=== PATIENT | male | born 1995 | race Caucasian/White ===

== ENCOUNTER 2018-09-10 10:51 | Inpatient (IN) | payer OTHER ==
[2018-09-10] MEDS ORDERED: SODIUM CHLORIDE 1,000 ML IV STA ×3 (11:35→13:40)
[2018-09-10] MEDS ORDERED: KETOROLAC TROMETHAMINE 30 MG/1 ML VIAL IVPUSH ONE (11:35)
[2018-09-10] MEDS ORDERED: KETOROLAC TROMETHAMINE 30 MG/1 ML VIAL ONE (11:54)
[2018-09-10 12:12] LABS: BASO % 0.1 % (0-2.0); EOS % 1.3 % (0-4.5); HEMATOCRIT 46.3 % (35.4-49); HEMOGLOBIN 15.5 GM/dL (11.7-16.9); LYMPH % 15.7 % (8-40); MCH 28.7 pg (25.7-33.7); MCHC 33.4 g/dl (32.0-35.9); MEAN CELL VOLUME 85.7 fl (80-96); MONO % 7.2 % (3.8-10.2); NEUT % 75.7 % (42.8-82.8); URINE APPEARANCE CLEAR; URINE BILIRUBIN NEGATIVE (NEGATIVE); URINE COLOR YELLOW; URINE GLUCOSE (UA) NEGATIVE (NEGATIVE); URINE KETONE NEGATIVE (NEGATIVE); URINE LEUK ESTERASE NEGATIVE (NEGATIVE); URINE NITRITE NEGATIVE (NEGATIVE); URINE PROTEIN NEGATIVE (NEGATIVE); WHITE BLOOD COUNT 6.5 K/mm3 (4.0-10.0)
[2018-09-10 12:16] LABS: PLATELET COUNT 251 K/MM3 (134-434)
--- NOTE | 2018-09-10 12:31 | PDOC ---
History of Present Illness - General Chief Complaint: Pain Stated Complaint: ABD PAIN Time Seen by Provider: 09/10/18 11:20 History Source: Patient Exam Limitations: No Limitations - History of Present Illness Travel History: No Initial Comments: 09/10/18 12:01 22-year-old male with no past medical history presents to ED with complaints of left flank aching and sharp pain radiating to his left back since yesterday evening. Patient denies any GI history, recent travel, recent illness or recent injury. Patient also denies GI history difficulty urinating, nausea, fever, or diarrhea. Timing/Duration: reports: constant Quality: reports: moderate, cramping Abdominal Pain Onset Location: reports: flank Pain Radiation: reports: back Activities at Onset: reports: none Aggravating Factors: improves with: None Alleviating Factors: improves with: None Past History - Travel Traveled outside of the country in the last 30 days: No Close contact w/someone who was outside of country & ill: No - Past Medical History Allergies/Adverse Reactions: Allergies Allergy/AdvReac Type Severity Reaction Status Date / Time No Known Allergies Allergy Verified 09/10/18 11:02 Home Medications: Ambulatory Orders NK [No Known Home Medication] 09/10/18 COPD: No - Suicide/Smoking/Psychosocial Hx Smoking History: Never smoked Patient Lives Alone: No Lives with/in: parents Review of Systems - Review of Systems Able to Perform ROS?: Yes Constitutional: No: Symptoms Reported HEENTM: No: Symptoms Reported Respiratory: No: Symptoms reported Cardiac (ROS): No: Symptoms Reported ABD/GI: Yes: Abdominal cramping : Yes: Flank Pain Musculoskeletal: Yes: Back Pain Integumentary: No: Symptoms Reported Neurological: No: Headache *Physical Exam - Vital Signs Last Vital Signs Temp Pulse Resp BP Pulse Ox 98.7 F 69 18 122/78 99 09/10/18 10:58 09/10/18 10:58 09/10/18 10:58 09/10/18 10:58 09/10/18 10:58 - Physical Exam General Appearance: Yes: Nourished, Appropriately Dressed. No: Apparent Distress HEENT: negative: Pale Conjunctivae Cardiovascular: positive: Regular Rhythm, Regular Rate. negative: Murmur Gastrointestinal/Abdominal: positive: Normal Bowel Sounds, Soft, Tenderness ( left upper quadrant left flank). negative: Distended, Guarding, Rebound Musculoskeletal: positive: CVA Tenderness (L) Extremity: positive: Normal Inspection Integumentary: positive: Normal Color, Warm, Moist Neurologic: positive: Motor Strength 5/5 (ambulatory) ED Treatment Course - LABORATORY CBC & Chemistry Diagram: 09/10/18 12:00 09/10/18 12:00 - ADDITIONAL ORDERS Additional order review: Laboratory Results 09/10/18 12:00 Urine Color Yellow Urine Appearance Clear Urine pH 6.0 Ur Specific [place] 1.028 Urine Protein Negative Urine Glucose (UA) Negative Urine Ketones Negative Urine Blood Negative Urine Nitrite Negative Urine Bilirubin Negative Urine Urobilinogen 1.0 Ur Leukocyte Esterase Negative 09/10/18 12:00 RBC 5.40 MCV 85.7 MCHC 33.4 RDW 13.0 MPV 7.0 L Neutrophils % 75.7 Lymphocytes % 15.7 Monocytes % 7.2 Eosinophils % 1.3 Basophils % 0.1 - RADIOLOGY Radiology Studies Ordered: Category Date Time Status SPIRAL- RENAL-STONE CT [CT] Stat CT Scan 09/10/18 11:37 Ordered - Medications Given in the ED: ED Medications Discontinued Medications Generic Name Dose Route Start Last Admin Trade Name Freq PRN Reason Stop Dose Admin Ketorolac Tromethamine 30 mg 09/10/18 11:35 09/10/18 12:14 Toradol Injection - IVPUSH 09/10/18 11:36 30 mg ONCE ONE Administration Medical Decision Making - Medical Decision Making 09/10/18 12:03 Complaint: Left upper quadrant left flank pain radiating to the back since yesterday no other symptoms. No medical history no injury Exam: Left upper quadrant and left CVA tenderness on exam Plan: Urine, labs IV fluids Toradol and spiral CT ordered 09/10/18 13:37 CT and shows no evidence of urinary tract calculi or obstructive uropathy. There is fluid identified about the body and tail of pancreas. This is suspicious of acute pancreatitis. Evaluation of pancreas is limited without the use of any contrast material. 09/10/18 13:38 Laboratory Tests 09/10/18 09/10/18 09/10/18 12:00 12:00 12:00 WBC 6.5 Hgb 15.5 Hct 46.3 Absolute Neuts (auto) 4.9 Sodium 139 Potassium 4.1 Chloride 105 Carbon Dioxide 31 Anion Gap 3 L BUN 9.8 Creatinine 1.0 Random Glucose 110 H Total Bilirubin 0.4 AST 33 ALT 31 Albumin 4.4 Urine Ketones Negative Urine Blood Negative Urine Bilirubin Negative Ur Leukocyte Esterase Negative 09/10/18 13:40 Patient ordered for additional labs made nothing by mouth, and second bag of IV fluids ordered. Patient reexamined. Patient has no right upper quadrant tenderness. Patient continues to have left flank tenderness with deep palpation 09/10/18 14:04 Laboratory Tests 09/10/18 12:00 LD Total 162 Total Amylase 212 H Lipase 1273 H [place]an Gap score is 0. Case discussed to be discussed with hospitalist for admission 09/10/18 14:35 Discussed with hospitalist and will admit to [facility]. EKG ordered. Patient ordered for dilaudid secondary to recurrent pain *DC/Admit/Observation/Transfer Diagnosis at time of Disposition: Pancreatitis - Discharge Dispostion Decision to Admit order: Yes - Referrals - Patient Instructions - Post Discharge Activity
[2018-09-10 12:45] LABS: ALBUMIN 4.4 g/dl (3.4-5.0); BILIRUBIN,TOTAL 0.4 mg/dL (0.2-1); BLOOD UREA NITROGEN 9.8 mg/dL (7-18); CALCIUM 9.5 mg/dL (8.5-10.1); POTASSIUM 4.1 mmol/L (3.5-5.1); TOT PROT 7.7 g/dl (6.4-8.2)
[2018-09-10] MEDS ORDERED: HYDROmorphone HCL CARPU-JECT 2 MG/1 ML DISP.SYRIN IVPUSH ONE (14:35)
[2018-09-10] MEDS ORDERED: HYDROmorphone HCl 2 MG/ML VIAL ONE (14:54)
[2018-09-10] MEDS ORDERED: LACTATED RINGERS SOLUTION 1,000 ML IV STA (15:24)
[2018-09-10] MEDS ORDERED: ONDANSETRON 4 MG/2 ML VIAL IVPUSH PRN (15:28)
--- NOTE | 2018-09-10 15:38 | HP ---
CHIEF COMPLAINT: Abdominal Pain PCP: HISTORY OF PRESENT ILLNESS: 22 y/o M with PMHx of Lactose intolerence presents with abdominal pain. Patient is primarily malay speaking, thus his girlfriend at bedside aided in providing the HPI. Patient was in his usual state of health yesterday, tolerating diet, passing flatus, micturating, and no difficulty with defecation. At approximately midnight, patient woke with sudden onset midepigastric pain that radiated to his LUQ. He is unable to describe the pain but says at worst it is intermittent and 10/10. This is the first time he has had this pain. He attempted to use the bathroom at this time hoping to provide pain relief but had difficulty defecating. He then tried home remedies (Lemon water with Salt, Milk of magnesium, Fabienne soda) with minimal relief. The persistence of pain with no improvement prompted him to visit [facility]. Of note, patient had 1 beer yesterday. Last weekend, he admits to having drank > 20 beers. Additionally, he endorses having rhinorrhea without any cough, fevers, chills last weekend. Lastly, Denies any hx of gallstones, Recent abdominal procedures including ERCP , Recent viral illness, Recent medication changes, Trauma or rash to the area, or any scorpion bites. Denies any associated chest pain, SOB, nausea, vomiting, diarrhea, constipation , Dysuria. 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 NECK: Supple LUNGS: Clear to auscultation bilaterally. No wheezes, no crackles. HEART: Regular rate and rhythm, normal S1 and S2 without murmur ABDOMEN: Soft, Tender to palpation in the LUQ > Midepigastrum, not distended, + bowel sounds, no guarding, no rebound MUSCULOSKELETAL: +Lloyds punch EXTREMITIES: No peripheral edema. NEUROLOGICAL: Cranial nerves II-XII intact. Normal speech. SKIN: Warm, dry Laboratory Results - last 24 hr 09/10/18 09/10/18 09/10/18 12:00 12:00 12:00 WBC 6.5 RBC 5.40 Hgb 15.5 Hct 46.3 MCV 85.7 MCH 28.7 MCHC 33.4 RDW 13.0 Plt Count 251 MPV 7.0 L Absolute Neuts (auto) 4.9 Neutrophils % 75.7 Lymphocytes % 15.7 Monocytes % 7.2 Eosinophils % 1.3 Basophils % 0.1 Nucleated RBC % 0 Sodium 139 Potassium 4.1 Chloride 105 Carbon Dioxide 31 Anion Gap 3 L BUN 9.8 Creatinine 1.0 Est GFR (CKD-EPI)AfAm 123.27 Est GFR (CKD-EPI)NonAf 106.36 Random Glucose 110 H Calcium 9.5 Total Bilirubin 0.4 AST 33 ALT 31 Alkaline Phosphatase 75 LD Total 162 Total Protein 7.7 Albumin 4.4 Total Amylase 212 H Lipase 1273 H Urine Color Yellow Urine Appearance Clear Urine pH 6.0 Ur Specific [place] 1.028 Urine Protein Negative Urine Glucose (UA) Negative Urine Ketones Negative Urine Blood Negative Urine Nitrite Negative Urine Bilirubin Negative Urine Urobilinogen 1.0 Ur Leukocyte Esterase Negative Active Medications Lactated Ringer's (Lactated Ringers Solution) 1,000 mls @ 1,000 mls/hr IV ONCE STA Stop: 09/10/18 16:23 Lactated Ringer's (Lactated Ringers Solution) 1,000 mls @ 200 mls/hr IV ASDIR DOUG Ketorolac Tromethamine (Toradol Injection -) 15 mg IVPUSH Q6H PRN PRN Reason: PAIN LEVEL 7 - 10 Stop: 09/15/18 15:23 Ondansetron HCl (Zofran Injection) 4 mg IVPUSH Q6H PRN PRN Reason: NAUSEA IMAGING: -Spiral CT: No evidence of urinary tract calculi or obstructive uropathy. Peripancreatic fluid suspicious for acute pancreatitis. Limited study as described above. ASSESSMENT/PLAN: 22 y/o M with PMHx of Lactose intolerence presents with Midepigastric and LUQ abdominal pain, found to have Lipase [address] evidence of Acute pancreatitis. #Acute Pancreatitis -Unclear etiology given that patient has only drank 1 beer recently (hx of binge drinking); No hx of Gallstones, recent ERCP, Viral illness, Medication use , Uremia, Trauma, or scorpion bite. -VSS, Without leukocytosis, TBilli and LFTs WNL -Amylase 212, Lipase 1273 -Spiral CT: Peripancreatic fluid suspicious for acute pancreatitis. -BISAP Score 0 -RANSONS criteria 0; Will check again at 48 hours -Abdominal US to r/o Gall stones -Stat Triglyceride level 24 -Patient requests diet; Will trial Clears and advance as tolerated -Given 1L NS in ED; Will give 1L LR more, then start LR @ 200 mls/hr until pain resolves and tolerating diet -Antiemesis via Ondansetron 4mg Q6H -Pain control via Ketorolac 15mg Q6 PRN; Will hold off on opiate use given theoretical risk of Sphincter of oddi spasm -Place NGT if any nausea/vomiting, severe pain or Abdominal distention -Will hold off on prophylactic ABx given patient is Afebrile, Nontoxic appearing , without leukocytosis, symptoms are resolving and patient would like to trial diet -Continue to Monitor WBC count, Hct, [place], Serum Cr as markers of severity and possible pancreatic necrosis #FEN -1L LR Bolus now followed by LR @ 200 mls/hr -Lytes WNL -Clear liquid diet #PPx -DVT: SCDs, Early ambulation Dispo: Admit to Med-Surg Visit type - Emergency Visit Emergency Visit: Yes ED Registration Date: 09/10/18 Care time: The patient presented to the Emergency Department on the above date and was hospitalized for further evaluation of their emergent condition. - New Patient This patient is new to me today: Yes Date on this admission: 09/10/18 - Critical Care Critical Care patient: No ATTENDING PHYSICIAN STATEMENT I saw and evaluated the patient. I reviewed the resident's note and discussed the case with the resident. I agree with the resident's findings and plan as documented. SUBJECTIVE: OBJECTIVE: ASSESSMENT AND PLAN:
[2018-09-10 16:19] VITALS: BMI 26.4
--- NOTE | 2018-09-10 17:29 | PN ---
Teaching Attending Note Name of Resident: Damari Jenkins ATTENDING PHYSICIAN STATEMENT I saw and evaluated the patient. I reviewed the resident's note and discussed the case with the resident. I agree with the resident's findings and plan as documented. SUBJECTIVE:22yo M with no PMH presented with abdominal pain that woke him up from sleep at midnight. L flank pain radiating to the back. /10 with no alleviating factors. no previous episodes. attempted to make himself vomit but was unable to. ate large fatty and fried meal yesterday with beer. did binge on beer last week with 20 beers but that is atypical he reports. denies CP, SOB, fever, chills no hx of gallstones, no known family history of autoimmune disease OBJECTIVE: Last Vital Signs Temp Pulse Resp BP Pulse Ox 98 F 69 18 132/79 100 09/10/18 15:28 09/10/18 15:28 09/10/18 15:28 09/10/18 15:28 09/10/18 15:28 General NAD CV S1 S2 RRR no murmur/rub/gallop Lungs CTA B/L no wheezing/rlaes/rhonchi Abdomen L flank and epigastric tenderness. neg ryan sign. soft +BS Extremiteis no pedal edema ASSESSMENT AND PLAN: 22yo M with no PMH presented with L flank pain and found to have acute appendicits by labs and imaging. 1. Acute appendicitis- medicine admission. unclear etiology, perhaps due to diet vs not being truthful on amount of beers? NPO, LR at 200cc/H, pain control. RUQ to evaluate for gallstones, check TG level. 2. Episodic ETOH abuse- notes to have binge on 20 beers last weekend. counselled on risks assoc with ETOH use and extermination supervisor consequences. 3. DVT ppx- lovenox
--- NOTE | 2018-09-10 19:41 | EKG ---
Test Reason : Blood Pressure : / mmHG Vent. Rate : 063 BPM Atrial Rate : 063 BPM P-R Int : 180 ms QRS Dur : 112 ms QT Int : 386 ms P-R-T Axes : 008 062 048 degrees QTc Int : 395 ms NORMAL SINUS RHYTHM VOLTAGE CRITERIA FOR LEFT VENTRICULAR HYPERTROPHY ST ELEVATION, CONSIDER EARLY REPOLARIZATION ABNORMAL ECG NO PREVIOUS ECGS AVAILABLE Confirmed by SARA SARAH MD ([id number]) on 09/10/2018 7:41:01 PM Referred By: Confirmed By:SARA SARAH MD
[2018-09-10] MEDS: LACTATED RINGERS SOLUTION 1,000 ML IV SCH (20:57)
[2018-09-10] MEDS: ENOXAPARIN NA (PORCINE) 40 MG/0.4 ML DISP.SYRIN SQ SCH (22:10)
[2018-09-10] MEDS: KETOROLAC TROMETHAMINE 15 MG/ML VIAL IVPUSH PRN (22:11)
[2018-09-11 07:33] LABS: BASO % 0.1 % (0-2.0); EOS % 0.4 % (0-4.5); HEMATOCRIT 41.2 % (35.4-49); HEMOGLOBIN 13.8 GM/dL (11.7-16.9); LYMPH % 20.8 % (8-40); MCH 29.1 pg (25.7-33.7); MCHC 33.6 g/dl (32.0-35.9); MEAN CELL VOLUME 86.5 fl (80-96); MEAN PLT VOLUME 7.3 fl (7.5-11.1); MONO % 11.5 % (3.8-10.2); NEUT % 67.2 % (42.8-82.8); PLATELET COUNT 230 K/MM3 (134-434); RBC 4.76 M/mm3 (4.00-5.60); WHITE BLOOD COUNT 7.1 K/mm3 (4.0-10.0)
[2018-09-11 08:01] LABS: ALBUMIN 3.2 g/dl (3.4-5.0); BILIRUBIN,TOTAL 1.6 mg/dL (0.2-1); BLOOD UREA NITROGEN 7.8 mg/dL (7-18); CALCIUM 8.2 mg/dL (8.5-10.1); CREATININE 0.8 mg/dL (0.55-1.3); MAGNESIUM 1.8 mg/dL (1.8-2.4); POTASSIUM 4.2 mmol/L (3.5-5.1)
[2018-09-11] MEDS: LACTATED RINGERS SOLUTION 1,000 ML IV SCH ×2 (09:43→15:58)
[2018-09-11] MEDS: ENOXAPARIN NA (PORCINE) 40 MG/0.4 ML DISP.SYRIN SQ SCH (09:43)
[2018-09-11] MEDS: KETOROLAC TROMETHAMINE 15 MG/ML VIAL IVPUSH PRN (09:45)
--- NOTE | 2018-09-11 14:04 | PN ---
Physical Exam: SUBJECTIVE: Patient seen and examined at bedside today. No discomfort while lying in bed. Mild abdominal discomfort when moving positions. OBJECTIVE: Vital Signs Period Temp Pulse Resp BP Sys/Hand Pulse Ox Last 24 Hr 98 F-99.7 F 69-85 18-20 118-142/72-79 100-100 GENERAL: The patient is awake, alert, and fully oriented, in no acute distress. HEAD: normocephalic atraumatic. EYES: No scleral icterus. LUNGS: Breath sounds equal, clear to auscultation bilaterally, no wheezes, no crackles, no accessory muscle use. HEART: Regular rate and rhythm, S1, S2 without murmur, rub or gallop. ABDOMEN: Tender to palpation of midepigastric region, LLq & LUQ. Soft, some guarding on deep palpation. No masses palpated. Bowel sounds present. EXTREMITIES: 2+ pulses, warm, well-perfused, no edema. SKIN: no rashes or lesions noted Laboratory Results - last 24 hr Laboratory Last Values WBC 7.1 K/mm3 (4.0-10.0) 09/11/18 06:42 RBC 4.76 M/mm3 (4.00-5.60) 09/11/18 06:42 Hgb 13.8 GM/dL (11.7-16.9) 09/11/18 06:42 Hct 41.2 % (35.4-49) 09/11/18 06:42 MCV 86.5 fl (80-96) 09/11/18 06:42 MCH 29.1 pg (25.7-33.7) 09/11/18 06:42 MCHC 33.6 g/dl (32.0-35.9) 09/11/18 06:42 RDW 13.0 % (11.9-15.9) 09/11/18 06:42 Plt Count 230 K/MM3 (134-434) 09/11/18 06:42 MPV 7.3 fl (7.5-11.1) L 09/11/18 06:42 Absolute Neuts (auto) 4.8 K/mm3 (1.5-8.0) 09/11/18 06:42 Neutrophils % 67.2 % (42.8-82.8) 09/11/18 06:42 Lymphocytes % 20.8 % (8-40) D 09/11/18 06:42 Monocytes % 11.5 % (3.8-10.2) H 09/11/18 06:42 Eosinophils % 0.4 % (0-4.5) 09/11/18 06:42 Basophils % 0.1 % (0-2.0) 09/11/18 06:42 Nucleated RBC % 0 % (0-0) 09/11/18 06:42 Sodium 140 mmol/L (136-145) 09/11/18 06:42 Potassium 4.2 mmol/L (3.5-5.1) 09/11/18 06:42 Chloride 107 mmol/L (98-107) 09/11/18 06:42 Carbon Dioxide 29 mmol/L (21-32) 09/11/18 06:42 Anion Gap 5 MMOL/L (8-16) L 09/11/18 06:42 BUN 7.8 mg/dL (7-18) 09/11/18 06:42 Creatinine 0.8 mg/dL (0.55-1.3) 09/11/18 06:42 Est GFR (CKD-EPI)AfAm 146.96 09/11/18 06:42 Est GFR (CKD-EPI)NonAf 126.80 09/11/18 06:42 Random Glucose 83 mg/dL (74-106) 09/11/18 06:42 Calcium 8.2 mg/dL (8.5-10.1) L 09/11/18 06:42 Phosphorus 3.0 mg/dL (2.5-4.9) 09/11/18 06:42 Magnesium 1.8 mg/dL (1.8-2.4) 09/11/18 06:42 Total Bilirubin 1.6 mg/dL (0.2-1) H 09/11/18 06:42 AST 20 U/L (15-37) 09/11/18 06:42 ALT 21 U/L (13-61) 09/11/18 06:42 Alkaline Phosphatase 58 U/L (45-117) 09/11/18 06:42 LD Total 162 U/L (87-246) 09/10/18 12:00 Total Protein 6.0 g/dl (6.4-8.2) L 09/11/18 06:42 Albumin 3.2 g/dl (3.4-5.0) L 09/11/18 06:42 Triglycerides 24 mg/dL (0-150) 09/10/18 12:00 Total Amylase 212 U/L (25-115) H 09/10/18 12:00 Lipase 1273 U/L (73-393) H 09/10/18 12:00 Urine Color Yellow 09/10/18 12:00 Urine Appearance Clear 09/10/18 12:00 Urine pH 6.0 (5.0-8.0) 09/10/18 12:00 Ur Specific [place] 1.028 (1.010-1.035) 09/10/18 12:00 Urine Protein Negative (NEGATIVE) 09/10/18 12:00 Urine Glucose (UA) Negative (NEGATIVE) 09/10/18 12:00 Urine Ketones Negative (NEGATIVE) 09/10/18 12:00 Urine Blood Negative (NEGATIVE) 09/10/18 12:00 Urine Nitrite Negative (NEGATIVE) 09/10/18 12:00 Urine Bilirubin Negative (NEGATIVE) 09/10/18 12:00 Urine Urobilinogen 1.0 mg/dL (0.2-1.0) 09/10/18 12:00 Ur Leukocyte Esterase Negative (NEGATIVE) 09/10/18 12:00 Blood Type O POSITIVE 09/10/18 14:34 Antibody Screen Negative 09/10/18 14:34 Active Medications Generic Name Dose Route Start Last Admin Trade Name Freq PRN Reason Stop Dose Admin Enoxaparin Sodium 40 mg 09/10/18 17:30 09/11/18 09:43 Lovenox - SQ 40 mg DAILY DOUG Administration Lactated Ringer's 1,000 mls @ 200 mls/hr 09/10/18 16:45 09/11/18 09:43 Lactated Ringers Solution IV 200 mls/hr ASDIR DOUG Administration Ketorolac Tromethamine 15 mg 09/10/18 15:24 09/11/18 09:45 Toradol Injection - IVPUSH 09/15/18 15:23 15 mg Q6H PRN Administration PAIN LEVEL 7 - 10 Ondansetron HCl 4 mg 09/10/18 15:28 Zofran Injection IVPUSH Q6H PRN NAUSEA ASSESSMENT/PLAN: 22 y.o. M PMH lactose intolerance found to have acute pancreatitis on abd/ pelvis CT. #Acute pancreatitis -Spiral CT: 1. No evidence of urinary tract calculi or obstructive uropathy. 2. Peripancreatic fluid suspicious for acute pancreatitis. Limited study as described above. -Abd US: Limited study with prominent CBD and no definite evidence of cholelithiasis or acute pathology. -Likely idiopathic; RUQ abd US neg for gallstones; TG 24 -Amylase 212, Lipase 1273 -Ransons criteria 0 on adm; recheck tomorrow @ 48h -NPO until pt feels able to tolerate CLD -Lactated ringers incr 250mL/ hr; will lung check x2 tonight -pain control PRN ; Ketorolac 15mg IM q6h #FEN -LR -Monitor lytes -NPO #DVT PPX LVX 40 Visit type - Emergency Visit Emergency Visit: No - New Patient This patient is new to me today: No - Critical Care Critical Care patient: No ATTENDING PHYSICIAN STATEMENT I saw and evaluated the patient. I reviewed the resident's note and discussed the case with the resident. I agree with the resident's findings and plan as documented. SUBJECTIVE: OBJECTIVE: ASSESSMENT AND PLAN:
--- NOTE | 2018-09-11 16:05 | PN ---
Teaching Attending Note Name of Resident: Farhana Rand ATTENDING PHYSICIAN STATEMENT I saw and evaluated the patient. I reviewed the resident's note and discussed the case with the resident. I agree with the resident's findings and plan as documented. SUBJECTIVE:continues to have L flank pain but overall improved since admission. denies CP, SOB, fever, chills, N/V/C/D OBJECTIVE: Last Vital Signs Temp Pulse Resp BP Pulse Ox 99.0 F 85 18 133/78 100 09/11/18 09:00 09/11/18 09:00 09/11/18 09:00 09/11/18 09:00 09/11/18 09:00 General NAD CV S1 S2 RRR no murmur/rub/gallop Lungs CTA B/L no wheezing/rlaes/rhonchi Abdomen soft L flank tenderness. epigastric tenderness resolved. ASSESSMENT AND PLAN: 22yo M with no PMH presented with L flank pain and found to have acute appendicits by labs and imaging. 1. Acute appendicitis-unknown etiology, possible diet with high fatty meals and alcohol. remains tender on exam. not requesting pain medications. encouraged if needed. will increase LR to 250mL. cont NPO and pain control. abdominal ultrasound noted. TG level low. will need GI eval as outpatient. 2. Episodic ETOH abuse- notes to have binge on 20 beers last weekend. counselled on risks assoc with ETOH use and watermaster consequences. no signs of withdrawal 3. DVT ppx- lovenox
[2018-09-12 07:10] LABS: BASO % 0.1 % (0-2.0); EOS % 0.8 % (0-4.5); HEMATOCRIT 40.7 % (35.4-49); HEMOGLOBIN 13.7 GM/dL (11.7-16.9); LYMPH % 17.6 % (8-40); MCH 28.8 pg (25.7-33.7); MCHC 33.6 g/dl (32.0-35.9); MEAN CELL VOLUME 85.7 fl (80-96); MEAN PLT VOLUME 7.1 fl (7.5-11.1); MONO % 12.4 % (3.8-10.2); NEUT % 69.1 % (42.8-82.8); RBC 4.75 M/mm3 (4.00-5.60); RDW 12.7 % (11.9-15.9); WHITE BLOOD COUNT 8.3 K/mm3 (4.0-10.0)
[2018-09-12] MEDS: LACTATED RINGERS SOLUTION 1,000 ML IV SCH ×3 (07:21→15:53)
[2018-09-12 07:40] LABS: ALBUMIN 3.2 g/dl (3.4-5.0); BILIRUBIN,TOTAL 1.1 mg/dL (0.2-1); BLOOD UREA NITROGEN 6.3 mg/dL (7-18); CALCIUM 8.7 mg/dL (8.5-10.1); CREATININE 0.8 mg/dL (0.55-1.3); MAGNESIUM 2.1 mg/dL (1.8-2.4); POTASSIUM 3.6 mmol/L (3.5-5.1); TOT PROT 6.1 g/dl (6.4-8.2)
[2018-09-12 08:15] LABS: PLATELET COUNT 219 K/MM3 (134-434)
--- NOTE | 2018-09-12 09:00 | CON.GI ---
Consult - Alcohol/Substance Use Hx Alcohol Use: Yes - Smoking History Smoking history: Never smoked Have you smoked in the past 12 months: Yes Aproximately how many cigarettes per day: 1 Home Medications - Allergies Allergies/Adverse Reactions: Allergies Allergy/AdvReac Type Severity Reaction Status Date / Time No Known Allergies Allergy Verified 09/10/18 11:02 - Home Medications Home Medications: Ambulatory Orders NK [No Known Home Medication] 09/10/18 Physical Exam-GI Vital Signs: Vital Signs Temperature 98.7 F 09/12/18 08:39 Pulse Rate 81 09/12/18 08:39 Respiratory Rate 18 09/12/18 08:39 Blood Pressure 144/85 09/12/18 08:39 O2 Sat by Pulse Oximetry (%) 100 09/11/18 21:00 Labs: CBC, BMP 09/12/18 06:19 09/12/18 06:19
--- NOTE | 2018-09-12 10:19 | CON.GI ---
Consult Consult Specialty:: GI Referred by:: Damari page resident Reason for Consultation:: Abdominal pain - History of Present Illness Chief Complaint: abdominal apin History of Present Illness: 22 year old male merlineich speaking with no pmhx presented to ed with 3 days history of sever abdominal pain radiated to his back , started Tuesday night while he was eating fried and Salami , 12/07 , radiated aso to left side chest , never had such pain before , he denies any associated symptoms N/V/D/C , denies any fever , chills, he reports drinking up to 20 beers on Tuesday deneis any urinary symptoms , denies any palpitation , sob , headache , blurry vision - History Source History Provided By: Patient Limitations to Obtaining History: Language Barrier (nurse help with translation) - Past Medical History 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: No: Alzheimer's, CVA, Dementia, Migraine, Multiple Sclerosis, Peripheral Neuropathy, Parkinson's, Seizure, Syncope, TIA, Vertigo, Other Cardio/Vascular: No: AFIB, Aneurysm, Aortic Insufficiency, Aortic Stenosis, CAD , CHF, Deep Vein Thrombosis, HTN, Hyperlipdemia, [place], Mitral Insufficiency, Mitral Stenosis, Murmur, Pulmonary Hypertension, Other Pulmonary: No: Asthma, Bronchitis, Cancer, COPD, O2 Dependent, Pneumonia, Previously Intubated, Pulmonary Embolus, Pulmonary Fibrosis, Sleep Apnea, Other Gastrointestinal: No: Ascites, Cancer, Constipation, Crohn's Disease, Diverticulitis, Diverticulosis, Esophageal Varices, Gastritis, GERD, GI Bleed, Hemorrhoids, Hiatal Hernia, Inflamatory Bowel Disease, Irritable Bowel Disease, Pancreatitis, Peptic Ulcer Disease, Ulcerative Colitis, Other Hepatobiliary: No: Cirrhosis, Cholelithiasis, Cholecystitis, Choledocholithiasis , Hepatitis A, Hepatitis B, Hepatitis C, Other Renal/: No: Renal Failure, Renal Inusuff, BPH, Cancer, Hematuria, Hemodialysis , Neurogenic Bladder, Renal Calculi, UTI, Other Heme/Onc: No: Anemia, B12 Deficiency, Bleeding Disorder, Cancer, Current Chemotherapy, Current Radiation Therapy, Hemochromatosis, Hypercoaguable State, Myeloproliferative Synd, Sickle Cell Disease, Sickle Cell Trait, Thrombocytopenia, Other Rheumatology: No: Fibromyalgia, Gout, Lupus, Rheumatoid Arthritis, Sarcoidosis, Vasculitis, Other ENT: No: Allergic Rhinitis, Sinusitis, Other Endocrine: No: [place]'s Disease, Johanne's Disease, Diabetes Insipidus, Diabetes Mellitus, Hyperparathyroidism, Hyperthyroidism, Hypothyroidism, Osteopenia, SIADH, Other Dermatology: No: Basal Cell, Cellulitis, Eczema, Melanoma, Psoriasis, Squamous Cell, Other - Past Surgical History Past Surgical History: Yes: None - Alcohol/Substance Use Hx Alcohol Use: Yes Number of Drinks Daily: 20 (20 beers on Saturdays ) History of Substance Use: reports: None Date of Last Use: 09/09/18 - Smoking History Have you smoked in the past 12 months: Yes Aproximately how many cigarettes per day: 1 If you are a former smoker, when did you quit?: hooka 3-4 times /month and vipes - Social History Usual Living Arrangement: Alone 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 <Randall Cole - Last Filed: 09/12/18 14:18> Home Medications <Durga Colei - Last Filed: 09/12/18 14:18> <Evelin Sethi - Last Filed: 09/12/18 18:29> - Allergies Allergies/Adverse Reactions: Allergies Allergy/AdvReac Type Severity Reaction Status Date / Time No Known Allergies Allergy Verified 09/10/18 11:02 - Home Medications Home Medications: Ambulatory Orders NK [No Known Home Medication] 09/10/18 Family Disease History - Family Disease History Family Disease History: Other: Mother (sinusitis ) <Randall Cole - Last Filed: 09/12/18 14:18> Review of Systems - Review of Systems Constitutional: reports: No Symptoms. denies: Chills, Diaphoresis Eyes: reports: No Symptoms HENT: reports: No Symptoms Neck: reports: No Symptoms Cardiovascular: denies: Palpitations, Shortness of Breath Respiratory: denies: Cough, Exercise Intolerance, Hemoptysis Gastrointestinal: reports: Abdominal Pain (left side radaited to his left back) . denies: Constipation, Diarrhea, Melena, Nausea, Rectal Bleeding, Vomiting Genitourinary: reports: No Symptoms Neurological: reports: No Symptoms <Randall Cole - Last Filed: 09/12/18 14:18> Physical Exam-GI Vital Signs: Vital Signs Temperature 98.7 F 09/12/18 08:39 Pulse Rate 81 09/12/18 08:39 Respiratory Rate 18 09/12/18 08:39 Blood Pressure 144/85 09/12/18 08:39 O2 Sat by Pulse Oximetry (%) 100 09/11/18 21:00 Constitutional: Yes: Well Nourished, No Distress, Calm Eyes: Yes: Conjunctiva Clear HENT: Yes: Atraumatic, Normocephalic Neck: Yes: Supple Cardiovascular: Yes: Regular Rate and Rhythm Respiratory: Yes: CTA Bilaterally Gastrointestinal Inspection: No: Ascites, Distention, Hernia, Scars ...Auscultate: Yes: Normoactive Bowel Sounds ...Palpate: Yes: Soft, Tenderness (left side pain , no rebound tenderness). No : Firm/Rigid ...Rectal Exam: Yes: Deferred Edema: No Peripheral Pulses WNL: Yes Neurological: Yes: Alert, Oriented Psychiatric: Yes: Alert, Oriented Labs: CBC, [facility] 09/12/18 06:19 09/12/18 06:19 <KelseyRandall - Last Filed: 09/12/18 14:18> Vital Signs: Vital Signs Temperature 98.5 F 09/12/18 15:24 Pulse Rate 76 09/12/18 15:24 Respiratory Rate 18 09/12/18 15:24 Blood Pressure 142/52 L 09/12/18 15:24 O2 Sat by Pulse Oximetry (%) 100 09/12/18 09:00 Labs: CBC, [facility] 09/12/18 06:19 09/12/18 06:19 <Evelin Sethi - Last Filed: 09/12/18 18:29> Imaging - Results Cat Scan: Report Reviewed Ultrasound: Report Reviewed <KelseyRandall - Last Filed: 09/12/18 14:18> Problem List - Problems (1) EtOH dependence Code(s): F10.20 - ALCOHOL DEPENDENCE, UNCOMPLICATED (2) Pancreatitis Code(s): K85.90 - ACUTE PANCREATITIS WITHOUT NECROSIS OR INFECTION, UNSP <Randall Cole - Last Filed: 09/12/18 14:18> Assessment/Plan # Acute pancreatitis , first episode * left side abdominal pain radiated to the back started Tuesday after he has salami and fries * elevated amylase and lipase three times upper normal , with CT scan finding per pancreatic fluids suggesting acute pancreatitis * heavy drink on weekend up to 20 Beers on Saturdays * CBD 9 mm with elevated bili 0.4.. 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 COLE - AGREE WITH ABOVE ASSESSMENT AND PLAN OUTLINED ABOVE <Evelin Sethi - Last Filed: 09/12/18 18:29>
[2018-09-12] MEDS: IMIPENEM/CILASTATIN SODIUM 500 MG in SODIUM CHLORIDE 100 ML IVPB SCH ×3 (11:15→21:34)
[2018-09-12] MEDS: ENOXAPARIN NA (PORCINE) 40 MG/0.4 ML DISP.SYRIN SQ SCH (11:20)
[2018-09-12 12:37] LABS: BILIRUBIN,DIRECT 0.3 mg/dL (0.0-0.2)
[2018-09-12 12:58] LABS: PH,URINE 8.5 (5.0-8.0); URINE APPEARANCE CLEAR; URINE BILIRUBIN NEGATIVE (NEGATIVE); URINE COLOR YELLOW; URINE GLUCOSE (UA) NEGATIVE (NEGATIVE); URINE KETONE 1+ (NEGATIVE); URINE LEUK ESTERASE NEGATIVE (NEGATIVE); URINE NITRITE NEGATIVE (NEGATIVE); URINE PROTEIN NEGATIVE (NEGATIVE); URINE UROBILINOGEN 0.2 mg/dL (0.2-1.0)
--- NOTE | 2018-09-12 13:34 | PN ---
Physical Exam: SUBJECTIVE: Patient seen and examined at bedside. Pt in mild abdominal discomfort, states 3-4/10 pain. Pain continues to radiate to his back. Pt also endorses mild shortness of breath when sitting up in bed. Educated patient on risks of binge drinking; pt understands and is aware of possible life threatening risks of alcohol abuse. 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 Appears stated age. HEENT: No scleral icterus. No lymphadenopathy LUNGS: CTABL HEART: Regular rate and rhythm, S1, S2 heard. Systolic murmur noted in aortic region. ABDOMEN: Soft. Tender to palpation in midepigastric region and LLQ. Pain radiates to back EXTREMITIES: 2+ pulses, warm, well-perfused, no edema. SKIN: No rashes or lesions noted Laboratory Results - last 24 hr Laboratory Last Values WBC 8.3 K/mm3 (4.0-10.0) 09/12/18 06:19 RBC 4.75 M/mm3 (4.00-5.60) 09/12/18 06:19 Hgb 13.7 GM/dL (11.7-16.9) 09/12/18 06:19 Hct 40.7 % (35.4-49) 09/12/18 06:19 MCV 85.7 fl (80-96) 09/12/18 06:19 MCH 28.8 pg (25.7-33.7) 09/12/18 06:19 MCHC 33.6 g/dl (32.0-35.9) 09/12/18 06:19 RDW 12.7 % (11.9-15.9) 09/12/18 06:19 Plt Count 219 K/MM3 (134-434) 09/12/18 06:19 MPV 7.1 fl (7.5-11.1) L 09/12/18 06:19 Absolute Neuts (auto) 5.7 K/mm3 (1.5-8.0) 09/12/18 06:19 Neutrophils % 69.1 % (42.8-82.8) 09/12/18 06:19 Lymphocytes % 17.6 % (8-40) 09/12/18 06:19 Monocytes % 12.4 % (3.8-10.2) H 09/12/18 06:19 Eosinophils % 0.8 % (0-4.5) D 09/12/18 06:19 Basophils % 0.1 % (0-2.0) 09/12/18 06:19 Nucleated RBC % 0 % (0-0) 09/12/18 06:19 Sodium 137 mmol/L (136-145) 09/12/18 06:19 Potassium 3.6 mmol/L (3.5-5.1) 09/12/18 06:19 Chloride 102 mmol/L (98-107) 09/12/18 06:19 Carbon Dioxide 30 mmol/L (21-32) 09/12/18 06:19 Anion Gap 5 MMOL/L (8-16) L 09/12/18 06:19 BUN 6.3 mg/dL (7-18) L 09/12/18 06:19 Creatinine 0.8 mg/dL (0.55-1.3) 09/12/18 06:19 Est GFR (CKD-EPI)AfAm 146.96 09/12/18 06:19 Est GFR (CKD-EPI)NonAf 126.80 09/12/18 06:19 Random Glucose 75 mg/dL (74-106) 09/12/18 06:19 Calcium 8.7 mg/dL (8.5-10.1) 09/12/18 06:19 Phosphorus 3.0 mg/dL (2.5-4.9) 09/12/18 06:19 Magnesium 2.1 mg/dL (1.8-2.4) 09/12/18 06:19 Total Bilirubin 1.1 mg/dL (0.2-1) H 09/12/18 06:19 Direct Bilirubin 0.3 mg/dL (0.0-0.2) H 09/12/18 06:19 AST 19 U/L (15-37) 09/12/18 06:19 ALT 19 U/L (13-61) 09/12/18 06:19 Alkaline Phosphatase 53 U/L (45-117) 09/12/18 06:19 LD Total 162 U/L (87-246) 09/10/18 12:00 Total Protein 6.1 g/dl (6.4-8.2) L 09/12/18 06:19 Albumin 3.2 g/dl (3.4-5.0) L 09/12/18 06:19 Triglycerides 24 mg/dL (0-150) 09/10/18 12:00 Total Amylase 212 U/L (25-115) H 09/10/18 12:00 Lipase 1273 U/L (73-393) H 09/10/18 12:00 Urine Color Yellow 09/12/18 11:30 Urine Appearance Clear 09/12/18 11:30 Urine pH 8.5 (5.0-8.0) H D 09/12/18 11:30 Ur Specific [place] 1.008 (1.010-1.035) L 09/12/18 11:30 Urine Protein Negative (NEGATIVE) 09/12/18 11:30 Urine Glucose (UA) Negative (NEGATIVE) 09/12/18 11:30 Urine Ketones 1+ (NEGATIVE) H 09/12/18 11:30 Urine Blood Negative (NEGATIVE) 09/12/18 11:30 Urine Nitrite Negative (NEGATIVE) 09/12/18 11:30 Urine Bilirubin Negative (NEGATIVE) 09/12/18 11:30 Urine Urobilinogen 0.2 mg/dL (0.2-1.0) 09/12/18 11:30 Ur Leukocyte Esterase Negative (NEGATIVE) 09/12/18 11:30 Blood Type O POSITIVE 09/11/18 06:42 Antibody Screen Negative 09/10/18 14:34 Active Medications Generic Name Dose Route Start Last Admin Trade Name Pilar PRN Reason Stop Dose Admin Enoxaparin Sodium 40 mg 09/10/18 17:30 09/12/18 11:20 Lovenox - SQ 40 mg DAILY DOUG Administration Lactated Ringer's 1,000 mls @ 250 mls/hr 09/11/18 14:37 09/12/18 11:22 Lactated Ringers Solution IV 250 mls/hr ASDIR DOUG Administration Imipenem/Cilastatin Sodium 500 100 mls @ 200 mls/hr 09/12/18 09:00 09/12/18 11:15 mg/ Sodium Chloride IVPB 09/13/18 08:59 Not Given Q6H-IV DOUG Protocol Ketorolac Tromethamine 15 mg 09/10/18 15:24 09/11/18 09:45 Toradol Injection - IVPUSH 09/15/18 15:23 15 mg Q6H PRN Administration PAIN LEVEL 7 - 10 Ondansetron HCl 4 mg 09/10/18 15:28 Zofran Injection IVPUSH Q6H PRN NAUSEA ASSESSMENT/PLAN: 22 y.o. M PMH lactose intolerance presented with 10/10 midepigastric pain radiating to his back. Found to have acute pancreatitis on CT. #Acute pancreatitis w/ possible cholangitis -MRCP today -CT abd pel confirmed acute pancreatitis -Abd US: prominent CBD -Pt binge drank 20-25 beers last weekend -Elevated amylase lipase on adm -Ransons 0 on adm, 0 @ 48hours -NPO -LR @250mL/hr -Pain control; Torodol 15mg IM PRN -Imipenem abx for empiric coverage #Fever -100.4F last night; resolved -Sepsis workup initiated, pending cultures -CXR: moderate inspiration with prominent mediastinum and some minimal atelectatic change at the left base. There is no sign of infiltrate or failure. The angles are sharp. The bones and soft tissues are intact. Correlation and follow-up recommended. -Monitor vitals -MRCP today #FEN -LR @250mL/ hr -Monitor lytes -NPO #DVT PPX -LVX 40 -SCDs Visit type - Emergency Visit Emergency Visit: No - New Patient This patient is new to me today: No - Critical Care Critical Care patient: No ATTENDING PHYSICIAN STATEMENT I saw and evaluated the patient. I reviewed the resident's note and discussed the case with the resident. I agree with the resident's findings and plan as documented. SUBJECTIVE: OBJECTIVE: ASSESSMENT AND PLAN:
--- NOTE | 2018-09-12 13:40 | CON.ID ---
Consult Consult Specialty:: infectious diseases Referred by:: hospitalist Reason for Consultation:: fever,pancreatitis - History of Present Illness Chief Complaint: abd pain,fever History of Present Illness: 22 year old male merlineich speaking with no pmhx presented to ed with 3 days history of sever abdominal pain radiated to his back , started Tuesday night while he was eating fried and Salami , 12/07 , radiated aso to left side chest , never had such pain before , he denies any associated symptoms N/V/D/C , denies any fever , chills, he reports drinking up to 20 beers on Tuesday deneis any urinary symptoms , denies any palpitation , sob , headache , blurry vision currently patient feels better,still with abd pain - History Source History Provided By: Patient Limitations to Obtaining History: Language Barrier - Past Medical History 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: Alzheimer's, CVA, Dementia, Migraine, Multiple Sclerosis, Peripheral Neuropathy, Parkinson's, Seizure, Syncope, TIA, Vertigo, Other Cardio/Vascular: No: AFIB, Aneurysm, Aortic Insufficiency, Aortic Stenosis, CAD , CHF, Deep Vein Thrombosis, HTN, Hyperlipdemia, [place], Mitral Insufficiency, Mitral Stenosis, Murmur, Pulmonary Hypertension, Other Pulmonary: No: Asthma, Bronchitis, Cancer, COPD, O2 Dependent, Pneumonia, Previously Intubated, Pulmonary Embolus, Pulmonary Fibrosis, Sleep Apnea, Other Gastrointestinal: No: Ascites, Cancer, Constipation, Crohn's Disease, Diverticulitis, Diverticulosis, Esophageal Varices, Gastritis, GERD, GI Bleed, Hemorrhoids, Hiatal Hernia, Inflamatory Bowel Disease, Irritable Bowel Disease, Pancreatitis, Peptic Ulcer Disease, Ulcerative Colitis, Other Hepatobiliary: No: Cirrhosis, Cholelithiasis, Cholecystitis, Choledocholithiasis , Hepatitis A, Hepatitis B, Hepatitis C, Other Renal/: No: Renal Failure, Renal Inusuff, BPH, Cancer, Hematuria, Hemodialysis , Neurogenic Bladder, Renal Calculi, UTI, Other Rheumatology: No: Fibromyalgia, Gout, Lupus, Rheumatoid Arthritis, Sarcoidosis, Vasculitis, Other ENT: No: Allergic Rhinitis, Sinusitis, Other Endocrine: No: [place]'s Disease, [place]'s Disease, Diabetes Insipidus, Diabetes Mellitus, Hyperparathyroidism, Hyperthyroidism, Hypothyroidism, Osteopenia, SIADH, Other Dermatology: No: Basal Cell, Cellulitis, Eczema, Melanoma, Psoriasis, Squamous Cell, Other - Past Surgical History Past Surgical History: Yes: None - Alcohol/Substance Use Hx Alcohol Use: Yes Number of Drinks Daily: 20 (20 beers on Saturdays ) History of Substance Use: reports: None Date of Last Use: 09/09/18 - Smoking History Smoking history: Never smoked Have you smoked in the past 12 months: Yes Aproximately how many cigarettes per day: 1 If you are a former smoker, when did you quit?: hooka 3-4 times /month and vipes - Social History Usual Living Arrangement: Alone 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 Medications - Allergies Allergies/Adverse Reactions: Allergies Allergy/AdvReac Type Severity Reaction Status Date / Time No Known Allergies Allergy Verified 09/10/18 11:02 - Home Medications Home Medications: Ambulatory Orders NK [No Known Home Medication] 09/10/18 Family Disease History - Family Disease History Family Disease History: Other: Mother (sinusitis ) Review of Systems - Review of Systems Constitutional: reports: Fever Eyes: reports: No Symptoms Cardiovascular: reports: No Symptoms Respiratory: reports: No Symptoms Gastrointestinal: reports: Abdominal Pain Genitourinary: reports: No Symptoms Musculoskeletal: reports: No Symptoms Integumentary: reports: No Symptoms Neurological: reports: No Symptoms Endocrine: reports: No Symptoms Hematology/Lymphatic: reports: No Symptoms Psychiatric: reports: No Symptoms Physical Exam Vital Signs: Vital Signs Temperature 98.7 F 09/12/18 08:39 Pulse Rate 81 09/12/18 08:39 Respiratory Rate 18 09/12/18 08:39 Blood Pressure 144/85 09/12/18 08:39 O2 Sat by Pulse Oximetry (%) 100 09/11/18 21:00 Constitutional: Yes: Well Nourished, Calm, Mild Distress Cardiovascular: Yes: Regular Rate and Rhythm Respiratory: Yes: Regular, CTA Bilaterally Gastrointestinal: Yes: Normal Bowel Sounds, Soft Musculoskeletal: Yes: WNL Extremities: Yes: WNL Neurological: Yes: Alert, Oriented Psychiatric: Yes: Alert, Oriented Labs: CBC, BMP 09/12/18 06:19 09/12/18 06:19 Imaging - Results Chest X-ray: Report Reviewed, Image Reviewed Cat Scan: Report Reviewed, Image Reviewed Ultrasound: Report Reviewed, Image Reviewed Assessment/Plan Problem List - Problems (1) EtOH dependence Code(s): F10.20 - ALCOHOL DEPENDENCE, UNCOMPLICATED (2) Pancreatitis Code(s): K85.90 - ACUTE PANCREATITIS WITH after lookng at the symptoms and imaging studies ,leaning towards alcholic pancreatitis at the moment we will not give any abx if the wbc starts to rise and patient starts spiking fevers,then will start abx also will need imaging study in couple of days
--- NOTE | 2018-09-12 15:15 | PN ---
Teaching Attending Note Name of Resident: Farhana Rand ATTENDING PHYSICIAN STATEMENT I saw and evaluated the patient. I reviewed the resident's note and discussed the case with the resident. I agree with the resident's findings and plan as documented. SUBJECTIVE: Reports ongoing abdominal discomfort (L side). No nausea/vomiting. Hungry + OBJECTIVE: Fever overnight Tmax 100.6. Hemodynamically Stable. Last Vital Signs Temp Pulse Resp BP Pulse Ox 98.7 F 81 18 144/85 100 09/12/18 08:39 09/12/18 08:39 09/12/18 09:00 09/12/18 08:39 09/12/18 09:00 HEENT - Atraumatic, Normocephalic. Heart - S1, S2, SM Lungs -clear to auscultation Abdomen - L sided tenderness, soft, bowel sounds normal Extremities - no edema, no calf tenderness Laboratory Results - last 24 hr 09/11/18 09/12/18 09/12/18 06:42 06:19 06:19 WBC 8.3 RBC 4.75 Hgb 13.7 Hct 40.7 MCV 85.7 MCH 28.8 MCHC 33.6 RDW 12.7 Plt Count 219 MPV 7.1 L Absolute Neuts (auto) 5.7 Neutrophils % 69.1 Lymphocytes % 17.6 Monocytes % 12.4 H Eosinophils % 0.8 D Basophils % 0.1 Nucleated RBC % 0 Sodium 137 Potassium 3.6 Chloride 102 Carbon Dioxide 30 Anion Gap 5 L BUN 6.3 L Creatinine 0.8 Est GFR (CKD-EPI)AfAm 146.96 Est GFR (CKD-EPI)NonAf 126.80 Random Glucose 75 Calcium 8.7 Phosphorus 3.0 Magnesium 2.1 Total Bilirubin 1.1 H Direct Bilirubin 0.3 H AST 19 ALT 19 Alkaline Phosphatase 53 Total Protein 6.1 L Albumin 3.2 L Urine Color Urine Appearance Urine pH Ur Specific [place] Urine Protein Urine Glucose (UA) Urine Ketones Urine Blood Urine Nitrite Urine Bilirubin Urine Urobilinogen Ur Leukocyte Esterase Blood Type O POSITIVE 09/12/18 11:30 WBC RBC Hgb Hct MCV MCH MCHC RDW Plt Count MPV Absolute Neuts (auto) Neutrophils % Lymphocytes % Monocytes % Eosinophils % Basophils % Nucleated RBC % Sodium Potassium Chloride Carbon Dioxide Anion Gap BUN Creatinine Est GFR (CKD-EPI)AfAm Est GFR (CKD-EPI)NonAf Random Glucose Calcium Phosphorus Magnesium Total Bilirubin Direct Bilirubin AST ALT Alkaline Phosphatase Total Protein Albumin Urine Color Yellow Urine Appearance Clear Urine pH 8.5 H D Ur Specific [place] 1.008 L Urine Protein Negative Urine Glucose (UA) Negative Urine Ketones 1+ H Urine Blood Negative Urine Nitrite Negative Urine Bilirubin Negative Urine Urobilinogen 0.2 Ur Leukocyte Esterase Negative Blood Type Current Medications Generic Name Dose Route Start Last Admin Trade Name Freq PRN Reason Stop Dose Admin Enoxaparin Sodium 40 mg 09/10/18 17:30 09/12/18 11:20 Lovenox - SQ 40 mg DAILY DOUG Administration Lactated Ringer's 1,000 mls @ 250 mls/hr 09/11/18 14:37 09/12/18 11:22 Lactated Ringers Solution IV 250 mls/hr ASDIR DOUG Administration Imipenem/Cilastatin Sodium 500 100 mls @ 200 mls/hr 09/12/18 09:00 09/12/18 11:15 mg/ Sodium Chloride IVPB 09/13/18 08:59 Not Given Q6H-IV DOUG Protocol Ketorolac Tromethamine 15 mg 09/10/18 15:24 09/11/18 09:45 Toradol Injection - IVPUSH 09/15/18 15:23 15 mg Q6H PRN Administration PAIN LEVEL 7 - 10 Ondansetron HCl 4 mg 09/10/18 15:28 Zofran Injection IVPUSH Q6H PRN NAUSEA Home Medications Medication Instructions Recorded NK [No Known Home Medication] 09/10/18 ASSESSMENT AND PLAN: 22 year old male with history of periodic binge drinking, presents with L flank pain and found to have acute pancreatitis with CBD dilatation. 1. Acute Pancreatitis - etiology unclear. US Abdo showed CBD 9mm. Lipase 1273 CT A/P - Peripancreatic Fluid suspicious for acute pancreatitis. IV hydration MRCP for further evaluation of Pancreatobiliary ductal system NPO/IV Fluids. 2. Possible acute cholangitis - Fever, elevated bilirubin, dilated CBD Will start Carbapenem empirically. GI/ID following. DVT Px - Lovenox SQ
[2018-09-12] MEDS ORDERED: PT OWN MED DRAWER 7, Y5N ONE (21:01)
[2018-09-13] MEDS ORDERED: PT OWN MED DRAWER 7, Y5N ONE (01:52)
[2018-09-13] MEDS: IMIPENEM/CILASTATIN SODIUM 500 MG in SODIUM CHLORIDE 100 ML IVPB SCH (02:10)
[2018-09-13 07:05] LABS: BASO % 0.3 % (0-2.0); EOS % 4.4 % (0-4.5); HEMATOCRIT 39.6 % (35.4-49); HEMOGLOBIN 13.2 GM/dL (11.7-16.9); LYMPH % 22.7 % (8-40); MCH 28.7 pg (25.7-33.7); MCHC 33.5 g/dl (32.0-35.9); MEAN CELL VOLUME 85.7 fl (80-96); MONO % 12.6 % (3.8-10.2); PLATELET COUNT 224 K/MM3 (134-434); RBC 4.62 M/mm3 (4.00-5.60); RDW 12.5 % (11.9-15.9); WHITE BLOOD COUNT 5.6 K/mm3 (4.0-10.0)
[2018-09-13 07:15] LABS: ALBUMIN 3.2 g/dl (3.4-5.0); BILIRUBIN,TOTAL 0.8 mg/dL (0.2-1); BLOOD UREA NITROGEN 7.8 mg/dL (7-18); CALCIUM 8.8 mg/dL (8.5-10.1); CREATININE 0.7 mg/dL (0.55-1.3); PHOSPHOROUS 3.6 mg/dL (2.5-4.9); POTASSIUM 3.9 mmol/L (3.5-5.1); TOT PROT 6.2 g/dl (6.4-8.2)
[2018-09-13] MEDS: LACTATED RINGERS SOLUTION 1,000 ML IV SCH (09:19)
[2018-09-13] MEDS: ENOXAPARIN NA (PORCINE) 40 MG/0.4 ML DISP.SYRIN SQ SCH (09:20)
--- NOTE | 2018-09-13 12:58 | PN.GI ---
GI Progress Note Subjective: Pt seen/examined at bedside, feeling better, abdominal pain resolved. Denies nausea/vomiting or fever/chills. Tolerating liquid diet. - Objective Vital Signs: Vital Signs Temperature 98.0 F 09/13/18 09:22 Pulse Rate 74 09/13/18 09:22 Respiratory Rate 16 09/13/18 09:22 Blood Pressure 147/78 09/13/18 09:22 O2 Sat by Pulse Oximetry (%) 99 09/12/18 21:00 Constitutional: Well Nourished, No Distress, Calm Cardiovascular: Yes: WNL, Regular Rate and Rhythm Respiratory: Yes: WNL, Regular, CTA Bilaterally ...Palpate: Yes: Other (Abd soft, nt, nd) Labs: CBC, BMP 09/13/18 06:15 09/13/18 06:15 Problem List - Problems (1) Pancreatitis Assessment/Plan: 22yo male presenting with abdominal pain with labs/imaging suggestive of acute pancreatitis (mild) likely secondary to etoh. Distended gallbladder, though no stones seen. MRCP without evidence of biliary dilation. LFTs normalized. Clinically improved. -Continue supportive measures -Advance diet as tolerated -Strict etoh abstinence advised -No clear indication for antibiotics at this time -Dc planning per primary team Discussed with medicine resident Code(s): K85.90 - ACUTE PANCREATITIS WITHOUT NECROSIS OR INFECTION, UNSP
--- NOTE | 2018-09-13 13:52 | PN ---
Progress Note, Physician History of Present Illness: stable no complaints - Current Medication List Current Medications: Active Medications Enoxaparin Sodium (Lovenox -) 40 mg SQ DAILY [facility] Last Admin: 09/13/18 09:20 Dose: 40 mg Lactated Ringer's (Lactated Ringers Solution) 1,000 mls @ 250 mls/hr IV ASDIR DOUG Last Admin: 09/13/18 09:19 Dose: 250 mls/hr Ketorolac Tromethamine (Toradol Injection -) 15 mg IVPUSH Q6H PRN PRN Reason: PAIN LEVEL 7 - 10 Stop: 09/15/18 15:23 Last Admin: 09/11/18 09:45 Dose: 15 mg Ondansetron HCl (Zofran Injection) 4 mg IVPUSH Q6H PRN PRN Reason: NAUSEA - Objective Vital Signs: Vital Signs Temperature 98.0 F 09/13/18 09:22 Pulse Rate 74 09/13/18 09:22 Respiratory Rate 16 09/13/18 09:22 Blood Pressure 147/78 09/13/18 09:22 O2 Sat by Pulse Oximetry (%) 99 09/13/18 09:00 Constitutional: Yes: No Distress, Calm Cardiovascular: Yes: Regular Rate and Rhythm Respiratory: Yes: Regular, CTA Bilaterally Gastrointestinal: Yes: Normal Bowel Sounds, Soft Musculoskeletal: Yes: WNL Extremities: Yes: WNL Neurological: Yes: Alert, Oriented Psychiatric: Yes: Alert, Oriented Labs: CBC, BMP 09/13/18 06:15 09/13/18 06:15 Assessment/Plan Problem List - Problems (1) EtOH dependence Code(s): F10.20 - ALCOHOL DEPENDENCE, UNCOMPLICATED (2) Pancreatitis Code(s): K85.90 - ACUTE PANCREATITIS WITH continue current mgmt rest as per the team
[2018-09-13 15:14] VITALS: BP 139/73; PULSE 68; TEMP 98.4
--- NOTE | 2018-09-13 17:18 | DS ---
Physical Exam: SUBJECTIVE: Patient seen and examined at bedside. In no acute distress. Denies abdominal pain. Afebrile. OBJECTIVE: Vital Signs Period Temp Pulse Resp BP Sys/Hand Pulse Ox Last 24 Hr 98.0 F-99.8 F 68-75 16-18 138-147/73-84 99-99 PHYSICAL EXAM GENERAL: The patient is awake, alert, and fully oriented, in no acute distress. LUNGS: Breath sounds equal, clear to auscultation bilaterally, no wheezes, no crackles, no accessory muscle use. HEART: Regular rate and rhythm, S1, S2 heard. Systolic murmur noted yesterday but did not appreciate murmur today. ABDOMEN: Soft. NTND. Bowel sounds +. EXTREMITIES: 2+ pulses, warm, well-perfused, no edema. SKIN: No rashes or lesions noted LABS Laboratory Results - last 24 hr Laboratory Last Values WBC 5.6 K/mm3 (4.0-10.0) 09/13/18 06:15 RBC 4.62 M/mm3 (4.00-5.60) 09/13/18 06:15 Hgb 13.2 GM/dL (11.7-16.9) 09/13/18 06:15 Hct 39.6 % (35.4-49) 09/13/18 06:15 MCV 85.7 fl (80-96) 09/13/18 06:15 MCH 28.7 pg (25.7-33.7) 09/13/18 06:15 MCHC 33.5 g/dl (32.0-35.9) 09/13/18 06:15 RDW 12.5 % (11.9-15.9) 09/13/18 06:15 Plt Count 224 K/MM3 (134-434) 09/13/18 06:15 MPV 7.0 fl (7.5-11.1) L 09/13/18 06:15 Absolute Neuts (auto) 3.4 K/mm3 (1.5-8.0) 09/13/18 06:15 Neutrophils % 60.0 % (42.8-82.8) 09/13/18 06:15 Lymphocytes % 22.7 % (8-40) D 09/13/18 06:15 Monocytes % 12.6 % (3.8-10.2) H 09/13/18 06:15 Eosinophils % 4.4 % (0-4.5) D 09/13/18 06:15 Basophils % 0.3 % (0-2.0) 09/13/18 06:15 Nucleated RBC % 0 % (0-0) 09/13/18 06:15 Sodium 138 mmol/L (136-145) 09/13/18 06:15 Potassium 3.9 mmol/L (3.5-5.1) 09/13/18 06:15 Chloride 104 mmol/L (98-107) 09/13/18 06:15 Carbon Dioxide 30 mmol/L (21-32) 09/13/18 06:15 Anion Gap 4 MMOL/L (8-16) L 09/13/18 06:15 BUN 7.8 mg/dL (7-18) 09/13/18 06:15 Creatinine 0.7 mg/dL (0.55-1.3) 09/13/18 06:15 Est GFR (CKD-EPI)AfAm 155.25 09/13/18 06:15 Est GFR (CKD-EPI)NonAf 133.96 09/13/18 06:15 Random Glucose 66 mg/dL (74-106) L 09/13/18 06:15 Calcium 8.8 mg/dL (8.5-10.1) 09/13/18 06:15 Phosphorus 3.6 mg/dL (2.5-4.9) 09/13/18 06:15 Magnesium 2.0 mg/dL (1.8-2.4) 09/13/18 06:15 Total Bilirubin 0.8 mg/dL (0.2-1) 09/13/18 06:15 Direct Bilirubin 0.3 mg/dL (0.0-0.2) H 09/12/18 06:19 AST 16 U/L (15-37) 09/13/18 06:15 ALT 17 U/L (13-61) 09/13/18 06:15 Alkaline Phosphatase 50 U/L (45-117) 09/13/18 06:15 LD Total 162 U/L (87-246) 09/10/18 12:00 Total Protein 6.2 g/dl (6.4-8.2) L 09/13/18 06:15 Albumin 3.2 g/dl (3.4-5.0) L 09/13/18 06:15 Triglycerides 24 mg/dL (0-150) 09/10/18 12:00 Total Amylase 212 U/L (25-115) H 09/10/18 12:00 Lipase 1273 U/L (73-393) H 09/10/18 12:00 Urine Color Yellow 09/12/18 11:30 Urine Appearance Clear 09/12/18 11:30 Urine pH 8.5 (5.0-8.0) H D 09/12/18 11:30 Ur Specific [place] 1.008 (1.010-1.035) L 09/12/18 11:30 Urine Protein Negative (NEGATIVE) 09/12/18 11:30 Urine Glucose (UA) Negative (NEGATIVE) 09/12/18 11:30 Urine Ketones 1+ (NEGATIVE) H 09/12/18 11:30 Urine Blood Negative (NEGATIVE) 09/12/18 11:30 Urine Nitrite Negative (NEGATIVE) 09/12/18 11:30 Urine Bilirubin Negative (NEGATIVE) 09/12/18 11:30 Urine Urobilinogen 0.2 mg/dL (0.2-1.0) 09/12/18 11:30 Ur Leukocyte Esterase Negative (NEGATIVE) 09/12/18 11:30 Blood Type O POSITIVE 09/11/18 06:42 Antibody Screen Negative 09/10/18 14:34 HOSPITAL COURSE: 22 y.o. M PMH lactose intolerance presented with 10/10 midepigastric pain radiating to his back. Pt had 1 episode fever 100.4 on 09/11/18 which has since resolved. Found to have acute pancreatitis on CT. MRCP negative for pancreatic pathology. Pt kept NPO and given IVF. Received Torodol IM PRN for pain control. Sepsis workup yielded no significant findings. Today patient was able to tolerate PO diet with no issues. Currently denies abdominal pain on palpation/ at rest. Vitals stable. Incidental finding of distended GB and prominent CBD for which pt will f/u with GI outpatient. Date of Admission:09/10/[address] 09/10/18: 1. No evidence of urinary tract calculi or obstructive uropathy. 2. Peripancreatic fluid suspicious for acute pancreatitis. Limited study as described above. Abd US 09/10/18: Limited study with prominent CBD and no definite evidence of cholelithiasis or acute pathology. MRCP 09/12/18: Distended gallbladder. There is no dilatation of the intrahepatic duct common bile duct or pancreatic ducts. There are no abdominal masses, collections or enlarged lymph nodes. Date of Discharge: 09/13/18 Minutes to complete discharge: 36 Discharge Summary Reason For Visit: PANCREATITIS Condition: Stable - Instructions Diet, Activity, Other Instructions: You presented to the hospital for a stomach pain. You had imaging done which revealed inflammation surrounding your pancreas. You were treated with IV fluids. Medication Changes: Please take Augmentin 875 mg by mouth twice per day for 5 days. You will stop taking this medication on 09/18/18. Follow up with the following physicians: 1. [facility] clinic in 1 week. 2. Gastroenterology (Dr. Carrillo) in 2 weeks. Further Instructions 1. Please refrain from consuming alcohol as this was likely the cause of your symptoms. 2. Please continue to eat a healthy diet and avoid fatty foods. You are being discharged to your home. Please return to the ER if you have any signs or symptoms of chest pain, shortness of breath, confusion, dizziness, abdominal pain, fatigue, fevers, vomiting, muscle pains or weakness. Please return to the ER if symptoms persist, worsen, or new symptoms arise. Referrals: Anya Carrillo MD [Staff Physician] - Disposition: HOME - Home Medications Comprehensive Discharge Medication List: Ambulatory Orders Amoxicillin/Potassium Clav [Augmentin 875-125 Tablet] 875 mg PO BID #10 tablet 09/13/18 This patient is new to me today: No Emergency Visit: No Critical Care patient: No - Discharge Referral Referred to [facility] No ATTENDING PHYSICIAN STATEMENT I saw and evaluated the patient. I reviewed the resident's note and discussed the case with the resident. I agree with the resident's findings and plan as documented. SUBJECTIVE: OBJECTIVE: ASSESSMENT AND PLAN:
--- NOTE | 2018-09-13 18:20 | PN ---
Teaching Attending Note Name of Resident: Farhana Rand ATTENDING PHYSICIAN STATEMENT I saw and evaluated the patient. I reviewed the resident's note and discussed the case with the resident. I agree with the resident's findings and plan as documented. SUBJECTIVE: OBJECTIVE: Last Vital Signs Temp Pulse Resp BP Pulse Ox 98.4 F 68 18 139/73 99 09/13/18 14:00 09/13/18 14:00 09/13/18 14:00 09/13/18 14:00 09/13/18 09:00 Laboratory Results - last 24 hr 09/13/18 09/13/18 06:15 06:15 WBC 5.6 RBC 4.62 Hgb 13.2 Hct 39.6 MCV 85.7 MCH 28.7 MCHC 33.5 RDW 12.5 Plt Count 224 MPV 7.0 L Absolute Neuts (auto) 3.4 Neutrophils % 60.0 Lymphocytes % 22.7 D Monocytes % 12.6 H Eosinophils % 4.4 D Basophils % 0.3 Nucleated RBC % 0 Sodium 138 Potassium 3.9 Chloride 104 Carbon Dioxide 30 Anion Gap 4 L BUN 7.8 Creatinine 0.7 Est GFR (CKD-EPI)AfAm 155.25 Est GFR (CKD-EPI)NonAf 133.96 Random Glucose 66 L Calcium 8.8 Phosphorus 3.6 Magnesium 2.0 Total Bilirubin 0.8 AST 16 ALT 17 Alkaline Phosphatase 50 Total Protein 6.2 L Albumin 3.2 L Home Medications Medication Instructions Recorded Amoxicillin/Potassium Clav 875 mg PO BID #10 tablet 09/13/18 [Augmentin 875-125 Tablet] ASSESSMENT AND PLAN:
== END 2018-09-13 16:47 | disposition home or self-care (01) | DRG 282 ==
LOC: JER 10:51 → JERBED 14:07 → J7W 18:14
PROVIDERS: ADMIT Internal Medicine
DX: K85.90 Acute pancreatitis without necrosis or infection, unspecified (principal); F10.20 Alcohol dependence, uncomplicated; E73.9 Lactose intolerance, unspecified; K82.8 Other specified diseases of gallbladder
CPT/HCPCS: 36415; 71045-TC-FY; 74176-TC; 74182-TC; 76705-TC; 80053; 81003; 82150; 82248; 83615; 83690; 83735; 84100; 84478; 85025; 86850; 86900; 86901; 87040; 87086; 93005; 93010; 94010; 97116-GP; 97161-GP; 99284-25; A9579; J7030